=== PATIENT | male | born 1990 ===

== ENCOUNTER 2017-01-20 22:11 | Emergency (ER) | payer OTHER ==
[2017-01-20 22:21] VITALS: BP 128/75; PULSE 64; RESP 16; TEMP 98.1; O2SAT 98
--- NOTE | 2017-01-20 22:30 | ED PDOC ---
Upper Extremity Pain/Injury Time Seen by Provider: 01/20/17 22:24 Chief Complaint (Nursing): Finger,Hand,&Wrist Chief Complaint (Provider): right hand pain History Per: Patient History/Exam Limitations: no limitations Onset/Duration Of Symptoms: Days (2) Current Symptoms Are (Timing): Still Present Hands/Wrist (Pic): 1 - Tenderness, Swelling, Pain Worse W/Movement Additional History Per: Patient Additional Complaint(s): 26 y/o male presents with pain to right hand x 2 days. Patient was doing martial arts training and accidentally punched a tree. Patient states he was seen at urgent care and xray showed fracture and was sent to ED for further eval. Denies numbness/weakness right upper extremity, limitation of movement. Past Medical History Reviewed: Historical Data, Nursing Documentation, Vital Signs Vital Signs: Last Vital Signs Temp 98.1 F 01/20/17 22:17 Pulse 64 01/20/17 22:17 Resp 16 01/20/17 22:17 BP 128/75 01/20/17 22:17 Pulse Ox 98 01/20/17 22:17 - Medical History PMH: No Chronic Diseases - Surgical History Surgical History: No Surg Hx - Family History Family History: States: Unknown Family Hx - Home Medications Home Medications: Ambulatory Orders Medication Instructions Recorded Acetaminophen with Codeine 1 tab PO Q6 PRN #12 tab 01/20/17 [Tylenol with Codeine No. 3 300 mg-30 mg] - Allergies Allergies/Adverse Reactions: Allergies Allergy/AdvReac Type Severity Reaction Status Date / Time No Known Allergies Allergy Verified 01/20/17 22:17 Review of Systems ROS Statement: Except As Marked, All Systems Reviewed And Found Negative Musculoskeletal: Positive for: Hand Pain (right) Physical Exam - Reviewed Nursing Documentation Reviewed: Yes Vital Signs Reviewed: Yes - Physical Exam Appears: Positive for: Well, Non-toxic, No Acute Distress Head Exam: Positive for: ATRAUMATIC, NORMAL INSPECTION, NORMOCEPHALIC Pulses-Radial (L): 2+ Pulses-Radial (R): 2+ Extremity: Positive for: Normal ROM, Tenderness (right 3rd and 4th metacarpals with + swelling. Distal NV, motor intact. ), Capillary Refill (<2 sec b/l ue) Neurologic/Psych: Positive for: Alert, Oriented. Negative for: Motor/Sensory Deficits - ECG O2 Sat by Pulse Oximetry: 98 - Other Rad xray right hand X-Ray: Viewed By Me X-Ray Interpretation: nondisplaced mid 3rd and 4th metacarpal fracture - Progress ED Course And Treament: xray, percocet PO patient educated on findings, placed in metacarpal splint/sling. Patient discharged with rx tylenol #3. Patient educated on risk of narcotic abuse/dependence/overdose; advised to take as needed for severe pain only. Patient demonstrates understanding. Advised follow up hand specialist. Ice, elevate. Return to ED for worsening/concerning symptoms. Disposition - Clinical Impression Clinical Impression: Hand fracture - Patient ED Disposition Is Patient to be Admitted: No Counseled Patient/Family Regarding: Studies Performed, Diagnosis, Need For Followup, Rx Given - Disposition Referrals: Satya Canales MD [Medical Doctor] - Magnolia Kowalski MD [Staff Provider] - Disposition: Routine/Home Disposition Time: 22:54 Condition: STABLE Additional Instructions: Take Ibuprofen as directed, as needed for moderate pain. Take Tylenol #3 as directed, as needed for severe pain only. Ice, elevate hand. Follow up hand specialist. Return to ED for worsening/concerning symptoms. Prescriptions: Acetaminophen with Codeine [Tylenol with Codeine No. 3 300 mg-30 mg] 1 tab PO Q6 PRN #12 tab PRN Reason: Pain, Severe (8-10) Instructions: Hand Fracture in Children (ED), Splint Care (ED)
[2017-01-20] MEDS ORDERED: Oxycodone/Acetaminophen 5/325 mg Tab PO ONE (22:45)
--- NOTE | 2017-01-21 10:33 | RAD ---
PROCEDURE: Right Hand Radiographs. HISTORY: punched tree, pain 3rd metacarpal COMPARISON: None. FINDINGS: BONES: Acute transverse fracture proximal 3rd right 3rd metacarpal. Major fracture fragments are anatomically aligned. JOINTS: Normal. No osteoarthritic changes. SOFT TISSUES: Soft tissue swelling attests to the acuity of the fracture. OTHER FINDINGS: None. IMPRESSION: Acute fracture 3rd metacarpal. No preliminary report provided by emergency department personnel.
== END 2017-01-21 00:07 | disposition home or self-care (01) ==
LOC: H.ER 22:11
DX: S62.91XA Unspecified fracture of right hand, initial encounter for closed fracture (principal); W22.8XXA Striking against or struck by other objects, initial encounter; Y92.89 Other specified places as the place of occurrence of the external cause